=== PATIENT | female | born 1980 | race Caucasian/White ===

== ENCOUNTER 2016-11-01 20:46 | Emergency (ER) | payer MEDICAID, OTHER ==
[~2016-11-01] VITALS: Ht 162.6 cm; Wt 59.0 kg
[2016-11-01 21:08] VITALS: Ht 162.6 cm; Wt 59.0 kg
[2016-11-01] MEDS ORDERED: ACETAMINOPHEN 325 MG TAB PO STA (21:54)
--- NOTE | 2016-11-01 22:43 | ERD ---
ER Documentation Chief Complaint Date/Time DATE: 11/01/16 TIME: 22:38 Chief Complaint VAG BLEEDING WITH ABD PAIN STARTED TODAY HPI This is a 36-year-old female, A1, presenting to the emergency department with vaginal bleeding and lower abdominal pain while . Patient's last menstrual period 08/20/2016 and patient states she is currently 9 weeks . Patient went to her [facility] today and was told that the fetus has no heart rate and to go to the ER for evaluation. Patient started having heavy menstrual bleeding with multiple blood clots. No nausea, vomiting or diarrhea. No fevers or chills. Patient states she has lower pelvic pain that radiates to her lower back. Patient rating pain 10/10 and is not taking anything at home for pain. ROS All systems reviewed and are negative except as per history of present illness. Medications Home Meds Active Scripts Acetaminophen* (Tylenol*) 325 Mg Tablet, 1 TAB PO Q6 Y for PAIN AND OR ELEVATED TEMP, #20 TAB Prov:PRAMOD RAMSEY NP 11/01/16 Allergies Allergies: Coded Allergies: No Known Allergy (Unverified , 11/01/16) PMhx/Soc Medical and Surgical Hx: pt denies Medical Hx Hx Alcohol Use: No Hx Substance Use: No Hx Tobacco Use: No Smoking Status: Never smoker Physical Exam Vitals Vital Signs Date Time Temp Pulse Resp B/P Pulse Ox O2 Delivery O2 Flow Rate FiO2 11/02/16 00:45 98.5 59 18 98/53 99 Room Air 11/01/16 21:08 98.4 82 20 130/77 99 Physical Exam Const: alert, anxious Head: Atraumatic Eyes: Normal Conjunctiva ENT: Normal External Ears, Nose and Mouth. Neck: Full range of motion..~ No meningismus. Resp: Clear to auscultation bilaterally. No wheezing or crackles. Cardio: Regular rate and rhythm, no murmurs Abd: Soft, non distended. Normal bowel sounds, suprapubic tenderness to palpation. Skin: No petechiae or rashes Back: No midline or flank tenderness. No CVA tenderness. Ext: No cyanosis, or edema Neur: Awake and alert Psych: Normal Mood and Affect Result Diagram: 11/01/16 5666 Results 24 hrs Laboratory Tests Test 11/01/16 22:38 11/02/16 00:43 White Blood Count 10.910^3/ul Red Blood Count 3.7510^6/ul Hemoglobin 12.2g/dl Hematocrit 35.4% Mean Corpuscular Volume 94.4fl Mean Corpuscular Hemoglobin 32.5pg Mean Corpuscular Hemoglobin Concent 34.5g/dl Red Cell Distribution Width 11.9% Platelet Count 27494^3/UL Mean Platelet Volume 10.1fl Neutrophils % 66.0% Lymphocytes % 22.7% Monocytes % 8.6% Eosinophils % 1.7% Basophils % 0.6% Nucleated Red Blood Cells % 0.0/100WBC Neutrophils # 7.210^3/ul Lymphocytes # 2.510^3/ul Monocytes # 0.910^3/ul Eosinophils # 0.210^3/ul Basophils # 0.110^3/ul Nucleated Red Blood Cells # 0.010^3/ul Beta HCG, Quantitative 1758.3mIU/ml Bedside Urine pH (LAB) 6.0 Bedside Urine Protein (LAB) Negative Bedside Urine Glucose (UA) Negative Bedside Urine Ketones (LAB) Negative Bedside Urine Blood 3+ Bedside Urine Nitrite (LAB) Negative Bedside Urine Leukocyte Esterase (L Negative Current Medications Medications (Trade) Dose Ordered Sig/Stone Route PRN Reason Start Time Stop Time Status Last Admin Dose Admin Acetaminophen (Tylenol Tab) 650 mg ONCE STAT PO 11/01/16 21:54 11/01/16 21:56 DC 11/01/16 22:44 Procedures/MDM [place] [id number] Radiology Main Line: [phone] DIAGNOSTIC IMAGING REPORT Patient: KHOI ADAMS : 1980 Age: 36 Sex: F MR #: [id number] DOS: 11/01/16 2154 Ordering MD: PRAMOD RAMSEY NP Location: [facility] Room/Bed: PROCEDURE: OB Ultrasound. CLINICAL INDICATION: Positive test. Vaginal bleeding. TECHNIQUE: Ultrasound of the pelvis was performed with transabdominal and transvaginal sonography in the axial and sagittal planes. COMPARISON: No prior study is available for comparison. FINDINGS: There is no intrauterine gestational sac. The uterus appears normal measuring 10.8 x 5.4 x 6.2 cm. Endometrial thickness is 19 mm. There is no uterine enlargement or mass. The right ovary appears normal measuring 3.0 x 1.4 x 1.8 cm. The left ovary appears normal measuring 2.2 x 1.2 x 1.7 cm. Color Doppler and pulsed Doppler sonography demonstrate normal flow to the ovaries. There is no other pelvic mass or free fluid. IMPRESSION: 1. No intrauterine gestational sac. If the patient has a positive test, ectopic gestation cannot be excluded. 2. Otherwise unremarkable study. MDM: This is a 36-year-old female presenting to the emergency department with vaginal bleeding and lower abdominal pain that radiates to lower back while . Patient states symptoms started today. Patient went to her [facility] clinic in which a OB ultrasound was done and patient was told that the fetus has no heart rate. Patient then came to the ER for evaluation. OB ultrasound reviewed by radiologist as no intrauterine gestational sac. CBC is unremarkable , no significant anemia or infection. Beta Hcg is 1758.3. Type and Rh factor is O positive. Patient given given Tylenol P.O. Upon reassessment, patient states pain is tolerable and discussed findings with her. Differential diagnosis includes but not limited to ectopic , threatened , missed , normal , subchorionic hemorrhage , ruptured ovarian cyst, UTI or pyelonephritis. Instructed patient to return in 2 days for repeat lab work and ultrasound. Patient is appropriate for outpatient management. Instructed patient to follow- up here in the ED in 2 days. Return to ED sooner for any high fever, chest pain , difficulty breathing, shortness breath, wheezing, vomiting, diarrhea, abdominal pain or any new or worsening symptoms. Patient verbalizes understanding. All questions answered at discharge. Departure Diagnosis: Primary Impression: Vaginal bleeding in patient at less than 20 weeks gestation Condition: PRAMOD Butterfield NP Nov 01, 2016 22:43
--- NOTE | 2016-11-01 22:49 | RADRPT ---
PROCEDURE: OB Ultrasound. CLINICAL INDICATION: Positive test. Vaginal bleeding. TECHNIQUE: Ultrasound of the pelvis was performed with transabdominal and transvaginal sonography in the axial and sagittal planes. COMPARISON: No prior study is available for comparison. FINDINGS: There is no intrauterine gestational sac. The uterus appears normal measuring 10.8 x 5.4 x 6.2 cm. Endometrial thickness is 19 mm. There is no uterine enlargement or mass. The right ovary appears normal measuring 3.0 x 1.4 x 1.8 cm. The left ovary appears normal measuring 2.2 x 1.2 x 1.7 cm. Color Doppler and pulsed Doppler sonography demonstrate normal flow to the ovaries. There is no other pelvic mass or free fluid. IMPRESSION: 1. No intrauterine gestational sac. If the patient has a positive test, ectopic gestatio n cannot be excluded. 2. Otherwise unremarkable study. RPTAT: QQ .Maninder Corrales MD, MD Date Time Electronically viewed and signed by .Maninder Corrales MD, on 11/01/2016 22:48 .R/
[2016-11-01 22:50] LABS: ADD SCAN DIFF NO
[2016-11-01 22:54] LABS: BASOPHIL # 0.1 10^3/ul (0.0-0.1); BASOPHILS % 0.6 % (0.0-2.0); EOSINOPHILS # 0.2 10^3/ul (0.0-0.5); EOSINOPHILS % 1.7 % (0.0-7.0); HEMATOCRIT 35.4 % (37.0-47.0); HEMOGLOBIN 12.2 g/dl (12.0-16.0); LYMPHOCYTES # 2.5 10^3/ul (0.8-2.9); LYMPHOCYTES % 22.7 % (15.0-51.0); MEAN CORPUSCULAR HEMOGLOBIN 32.5 pg (29.0-33.0); MEAN CORPUSCULAR HGB CONC 34.5 g/dl (32.0-37.0); MEAN CORPUSCULAR VOLUME 94.4 fl (82.0-101.0); MEAN PLATELET VOLUME 10.1 fl (7.4-10.4); MONOCYTE # 0.9 10^3/ul (0.3-0.9); MONOCYTES % 8.6 % (0.0-11.0); NEUTROPHIL # 7.2 10^3/ul (1.6-7.5); PLATELET COUNT 165 10^3/UL (140-415); RED BLOOD COUNT 3.75 10^6/ul (4.20-5.40); RED CELL DISTRIBUTION WIDTH 11.9 % (11.5-14.5); WHITE BLOOD COUNT 10.9 10^3/ul (4.8-10.8)
[2016-11-01] MEDS ORDERED: ACET325T33 PO (23:28)
[2016-11-02 00:37] LABS: URINE BLOOD (Dip) POC 3+ (NEGATIVE)
[2016-11-02 00:45] VITALS: BP 98/53; PULSE 59; RESP 18; TEMP 98.5
== END 2016-11-02 00:48 | disposition home or self-care (01) ==
LOC: FTE 20:46
DX: O20.9 Hemorrhage in early pregnancy, unspecified (principal); Z3A.09 9 weeks gestation of pregnancy
CPT/HCPCS: 76801; 76817; 81003; 84702; 85025; 86900; 86901; Z7610; 36415

== ENCOUNTER 2017-03-07 08:35 | Emergency (ER) | payer MEDICAID, OTHER ==
[~2017-03-07] VITALS: Ht 162.6 cm; Wt 63.0 kg
[~2017-03-07 08:35] MED LIST: ACET325T33 PO
[2017-03-07 08:37] VITALS: Ht 162.6 cm; Wt 63.0 kg
--- NOTE | 2017-03-07 09:23 | ERD ---
ER Documentation Chief Complaint Chief Complaint bright red bleeding w/clots since last night, 8wks lmp 12/28/16 HPI 36-year-old female with approximately 8 weeks presented to ED with bright red vaginal bleeding since this morning. Patient stated that bleeding has been heavy, she passed large amounts of clots in the toilet. Bleeding is lessened now. She changed 3 pads since awake this morning. Patient reports lower back pain and pelvic pain. She took Tylenol at 6:30 AM. Patient is SAB 2, LMP 12/31/2016. Denies fever or chills. Denies dysuria. ROS All systems reviewed and are negative except as per history of present illness. Medications Home Meds Active Scripts Acetaminophen* (Tylophen*) 500 Mg Capsule, 1 CAP PO Q6H Y for PAIN AND OR ELEVATED TEMP, #20 CAP Prov:NAN JEFFERS [employer] 03/07/17 Acetaminophen* (Tylenol*) 325 Mg Tablet, 1 TAB PO Q6 Y for PAIN AND OR ELEVATED TEMP, #20 TAB Prov:PRAMOD RAMSEY [employer] 11/01/16 Allergies Allergies: Coded Allergies: No Known Allergy (Unverified , 11/01/16) PMhx/Soc History of Surgery: No Anesthesia Reaction: No Hx Neurological Disorder: No Hx Respiratory Disorders: No Hx Cardiac Disorders: No Hx Psychiatric Problems: No Hx Miscellaneous Medical Probl: No Hx Alcohol Use: No Hx Substance Use: No Hx Tobacco Use: No Smoking Status: Never smoker Physical Exam Vitals Vital Signs Date Time Temp Pulse Resp B/P Pulse Ox O2 Delivery O2 Flow Rate FiO2 03/07/17 08:37 97.4 85 18 144/73 97 Physical Exam General: Well-developed, well-nourished, conscious and coherent, in no distress Skin: Warm and dry without rash, good texture and turgor Head: Normocephalic without evidence of trauma Eyes: Sclera and conjunctivae normal; pupils equal, round, and reactive to light; extraocular movements are intact Chest: Normal AP diameter. Good expansion without retractions. Nontender. Lungs are clear to auscultate bilaterally with good tidal volume Heart: Regular rate and rhythm. No murmur, rub, or gallops heard Abdomen: Soft and nontender without masses, guarding, or rebound. Bowel sounds are active. No hepatosplenomegaly Back: Without spinal or CVA tenderness Pelvis: Pelvic tenderness to palpation. Extremities: Full range of motion. Good strength bilaterally. No clubbing, cyanosis, or edema. Peripheral pulses are intact. Sensation intact Neuro: Alert and oriented 4, GCS 15. Cranial nerves grossly intact. Motor and sensory exams nonfocal. Moves all extremities. Speech clear. Gait normal Result Diagram: 03/07/17 0855 Results 24 hrs Laboratory Tests Test 03/07/17 08:55 03/07/17 09:06 White Blood Count 8.910^3/ul Red Blood Count 4.3010^6/ul Hemoglobin 13.4g/dl Hematocrit 39.9% Mean Corpuscular Volume 92.8fl Mean Corpuscular Hemoglobin 31.2pg Mean Corpuscular Hemoglobin Concent 33.6g/dl Red Cell Distribution Width 12.2% Platelet Count 84201^3/UL Mean Platelet Volume 10.0fl Neutrophils % 69.9% Lymphocytes % 19.6% Monocytes % 6.8% Eosinophils % 1.9% Basophils % 1.1% Nucleated Red Blood Cells % 0.0/100WBC Neutrophils # 6.210^3/ul Lymphocytes # 1.810^3/ul Monocytes # 0.610^3/ul Eosinophils # 0.210^3/ul Basophils # 0.110^3/ul Nucleated Red Blood Cells # 0.010^3/ul Beta HCG, Quantitative 665.9mIU/ml Urine Color YELLOW Urine Clarity CLEAR Urine pH 6.0 Urine Specific [place] 1.016 Urine Ketones NEGATIVEmg/dL Urine Nitrite NEGATIVEmg/dL Urine Bilirubin NEGATIVEmg/dL Urine Urobilinogen NEGATIVEmg/dL Urine Leukocyte Esterase TRACELeu/ul Urine Microscopic RBC 2/HPF Urine Microscopic WBC 11/HPF Urine Squamous Epithelial Cells FEW/HPF Urine Hemoglobin 3+mg/dL Urine Glucose NEGATIVEmg/dL Urine Total Protein NEGATIVEmg/dl PROCEDURE: Pelvic ultrasound. CLINICAL INDICATION: Pelvic pain, vaginal bleeding TECHNIQUE: Polo scale, color doppler, spectral doppler ultrasound of the pelvis was performed with transabdominal and transvaginal transducers. COMPARISON: US PELVIS 11/01/2016 FINDINGS: Uterus: Position: Anteverted. Normal myometrial echogenicity. Endometrium appears asymmetrically thickened in the midportion of the uterine body. Ovaries: Normal appearing right ovary. Normal appearing left ovary. No adnexal masses. Dominant left ovarian follicle measuring 1.1 cm. Free fluid: None. Measurements: Endometrium (cm): 1.5 Uterus (cm): 7.3 x 4.8 x 6.2 Right ovary (cm): 2.9 x 1.0 x 1.8 Left ovary (cm): 2.9 x 1.6 x 1.6 IMPRESSION: 1.1 cm dominant follicle left ovary. No evidence of intrauterine or extrauterine gestation. Unless clinically contraindicated recommend correlation with quantitative beta HCG trend and repeated pelvic ultrasound. Upper limits of normal asymmetric endometrial thickening within the midportion of the uterine body, similar finding seen on the prior examination. Follow-up ultrasound in 6 weeks also recommended. RPTAT: AADD .Sedrick Avila MD, MD Date Time Electronically viewed and signed by .Sedrick Avila MD, MD on 03/07/2017 10:08 .B/ CC: NAN JEFFERS. [employer] Procedures/MDM ED course: CBC: Negative. Beta hC.9 UA: Trace leukocyte, 3+ hemoglobin. Blood type: O+. RhoGAM is not indicated for patient. OB ultrasound: No intrauterine or extrauterine gestation is seen. Medical decision-making: Well-appearing 36-year-old female who is approximately 8 weeks present ED with vaginal bleeding and pelvic pain since this morning. No urine is seen on ultrasound. On pelvic exam, patient's cervix is closed. There is scant blood in the vaginal canal. Active bleeding noted. Patient had history of 2 prior spontaneous abortions. Given her history and ultrasound findings as well as low beta hCG level, I feel patient had another complete miscarriage today. Low suspicion for ectopic . Medications on discharge: Tylenol. Follow-up: Primary care provider in 2 days or return to ED if worse. Departure Diagnosis: Primary Impression: Vaginal bleeding in patient at less than 20 weeks ges... Condition: Stable NAN JEFFERS NP Mar 07, 2017 09:23
[2017-03-07 09:37] LABS: BASOPHIL # 0.1 10^3/ul (0.0-0.1); BASOPHILS % 1.1 % (0.0-2.0); EOSINOPHILS # 0.2 10^3/ul (0.0-0.5); EOSINOPHILS % 1.9 % (0.0-7.0); HEMATOCRIT 39.9 % (37.0-47.0); HEMOGLOBIN 13.4 g/dl (12.0-16.0); LYMPHOCYTES # 1.8 10^3/ul (0.8-2.9); LYMPHOCYTES % 19.6 % (15.0-51.0); MEAN CORPUSCULAR HEMOGLOBIN 31.2 pg (29.0-33.0); MEAN CORPUSCULAR HGB CONC 33.6 g/dl (32.0-37.0); MEAN CORPUSCULAR VOLUME 92.8 fl (82.0-101.0); MONOCYTE # 0.6 10^3/ul (0.3-0.9); MONOCYTES % 6.8 % (0.0-11.0); NEUTROPHIL # 6.2 10^3/ul (1.6-7.5); NEUTROPHILS % 69.9 % (39.0-77.0); PLATELET COUNT 214 10^3/UL (140-415); RED CELL DISTRIBUTION WIDTH 12.2 % (11.5-14.5); WHITE BLOOD COUNT 8.9 10^3/ul (4.8-10.8)
[2017-03-07 10:02] LABS: ADD UMIC YES; UR ASCORBIC ACID NEGATIVE (NEGATIVE); UR BILIRUBIN (Dip) NEGATIVE (NEGATIVE); UR BLOOD (Dip) 3+ mg/dL (NEGATIVE); UR CLARITY CLEAR (CLEAR); UR COLOR YELLOW (YELLOW); UR GLUCOSE (Dip) NEGATIVE (NEGATIVE); UR KETONES (Dip) NEGATIVE (NEGATIVE); UR LEUKOCYTE ESTERASE (Dip) TRACE Leu/ul (NEGATIVE); UR NITRITE (Dip) NEGATIVE (NEGATIVE); UR RBC 2 /HPF (0-5); UR SPECIFIC GRAVITY (Dip) 1.016 (1.003-1.030); UR SQUAMOUS EPITHELIAL CELL FEW /HPF (FEW); UR TOTAL PROTEIN (Dip) NEGATIVE (NEGATIVE); UR UROBILINOGEN (Dip) NEGATIVE (NEGATIVE)
--- NOTE | 2017-03-07 10:09 | RADRPT ---
PROCEDURE: Pelvic ultrasound. CLINICAL INDICATION: Pelvic pain, vaginal bleeding TECHNIQUE: Polo scale, color doppler, spectral doppler ultrasound of the pelvis was performed with transabdominal and transvaginal transducers. COMPARISON: US PELVIS 11/01/2016 FINDINGS: Uterus: Position: Anteverted. Normal myometrial echogenicity. Endometrium appears asymmetrically thickened in the midportion of the uterine body. Ovaries: Normal appearing right ovary. Normal appearing left ovary. No adnexal masses. Dominant left ovarian follicle measuring 1.1 cm. Free fluid: None. Measurements: Endometrium (cm): 1.5 Uterus (cm): 7.3 x 4.8 x 6.2 Right ovary (cm): 2.9 x 1.0 x 1.8 Left ovary (cm): 2.9 x 1.6 x 1.6 IMPRESSION: 1.1 cm dominant follicle left ovary. No evidence of intrauterine or extrauterine gestation. Unless clinically contraindicated recommend correlation with quantitative beta HCG trend and repeate d pelvic ultrasound. Upper limits of normal asymmetric endometrial thickening within the midportion of the uterine body, similar finding seen on the prior examination. Follow-up ultrasound in 6 weeks also recommended. RPTAT: AADD .Sedrick Avila MD, MD Date Time Electronically viewed and signed by .Sedrick Avila MD, on 03/07/2017 10:08 .B/
[2017-03-07] MEDS ORDERED: ACET500C5 PO (10:54)
== END 2017-03-07 11:05 | disposition home or self-care (01) ==
LOC: FTE 08:35
DX: O20.9 Hemorrhage in early pregnancy, unspecified (principal); R10.2 Pelvic and perineal pain; Z3A.08 8 weeks gestation of pregnancy
CPT/HCPCS: 36415; 76801; 76817; 81001; 84702; 85025; 86900; 86901